=== PATIENT | male | born 1965 | race Caucasian/White ===

== ENCOUNTER 2025-02-16 06:30 | Day surgery (SDC) | payer OTHER, SELFPAY ==
[2025-02-16] VITALS (7 sets, daily range): BP systolic 125–145; BP diastolic 72–82; BMI 27.0
[2025-02-16] MEDS: TYLENOL 1000 MG PO (08:13)
--- NOTE | 2025-02-16 08:16 | W.SUR.PREOP ---
Pre-Operative Surgical Note
-
I have examined this patient prior to the performance of the scheduled procedure.
The patient's condition is unchanged from the time of the current History and
Physical and the patient is able to undergo the scheduled procedure.
--- NOTE | 2025-02-16 08:16 | HP.FOC2 ---
Focused History & Physical
Chief Complaint
HPI:
Chief Complaint: Right inguinal hernia, umbilical hernia
HPI / Indication for Planned Procedure: This is a 59-year-old male who presents with a symptomatic right inguinal hernia, found to have an umbilical hernia and a possible left inguinal hernia. Will plan for a robotic right inguinal hernia repair
with mesh, open umbilical hernia repair with possible mesh and possible left inguinal hernia repair with mesh.
Relevant Past Medical History: Stroke
Relevant Social History: Negative
Relevant Family History: Negative
Relevant Past Surgical History: Negative
Review of Systems
Review of Pertinent Systems: All Systems Negative
Medication
See Medication form for detailed medications: Yes
Medication List (including Herbals & OTC):
multivitamin with folic acid 400 mcg tablet (Tab-A-Jacquelyn) 1 tab PO DAILY 12/01/09
aspirin 81 mg tablet,delayed release 81 mg PO HS 02/14/25
cyanocobalamin (vitamin B-12) 1,000 mcg/mL injection solution 1,000 mcg IM DIRECTED 02/14/25
Medications Reviewed: Yes
Allergies and Reactions
Patient has Allergies: No
Noted Allergies and Reactions:
Allergy/AdvReac Type Severity Reaction Status Date / Time
No Known Allergies Allergy Verified 02/16/25 08:11
Pertinent Physical Exam
All Other Systems: Negative
Head/Neck: Normal
Diagnosis / Assessment
This is a 59-year-old male who presents with a symptomatic right inguinal hernia, found to have an umbilical hernia and a possible left inguinal hernia. Will plan for a robotic right inguinal hernia repair with mesh, open umbilical hernia repair
with possible mesh and possible left inguinal hernia repair with mesh.
Plan / Procedure
This is a 59-year-old male who presents with a symptomatic right inguinal hernia, found to have an umbilical hernia and a possible left inguinal hernia. Will plan for a robotic right inguinal hernia repair with mesh, open umbilical hernia repair
with possible mesh and possible left inguinal hernia repair with mesh.
Anesthesia/Sedation to be done by Anesthesia Provider: Yes
[2025-02-16] MEDS: NORMOSOL-R/PLASMALYTE-A 1000 IV (08:28)
--- NOTE | 2025-02-16 10:30 | W.IMMPOSTOP ---
Surgical Immed Post Op Note
-
Primary Surgeon: Colton Blandon MD
Assisting Surgeon: None
Pre-op Diagnosis: Right inguinal hernia, umbilical hernia
Post-op Diagnosis: Same
Procedure Performed:
1. Robotic right inguinal hernia repair with mesh
2. Excision of a right spermatic cord lesion (cord lipoma)
3. Open primary umbilical hernia repair
Anesthesia Type: General
Specimen / Cultures: Right cord lipoma
Estimated Blood Loss: 3 cc
Complications: None
Operative Findings: Medium sized indirect inguinal hernia, no femoral or direct component. Medium size cord lipoma reduced and resected. 1.5 cm umbilical hernia reduced and closed with 2 [id number] oh Surgilon sutures.
--- NOTE | 2025-02-16 10:31 | OR.RPT ---
Operative Report
Operative Report
Patient Name: Gary Hernandez
: 1965
Date of Operation: 02/16/2025
Preoperative Diagnosis: , right right inguinal hernia, umbilical hernia
Postoperative Diagnosis: Same
Procedure(s):
1. Robotic Inguinal Hernia Repair with mesh, (RASTA approach)
2. Excision of lesion of a spermatic cord lipoma ([id number])
3. Open primary umbilical hernia repair
Surgeon(s):
Dr. Blandon
Accounts Payable Or Receivable Clerk(s):
RUBEN Johnson
Anesthesia: General
Estimated Blood Loss: 3 cc
Urine Output: None
Drains/Lines/Implants: Large 3D Max Bard mid weight uncoated polypropylene mesh
Specimens: None
Indication for surgery: The patient has a history of groin pain and noted on exam to have a right inguinal and umbilical hernia(s). Following review of therapeutic options they have elected to undergo a minimally invasive repair.
Operative Findings: Medium sized indirect inguinal hernia, no femoral or direct component. Medium size cord lipoma reduced and resected. 1.5 cm umbilical hernia reduced and closed with 2 [id number] oh Surgilon sutures.
Details of the operation:
The patient was brought to the Operating Room and placed in the supine position with the arms tucked. IV antibiotics were infused and Venodyne stockings placed. Following uneventful induction of general endotracheal anesthesia, an orogastric tube
was placed. The abdomen was prepped and draped in the usual sterile fashion. The abdomen was entered using an infraumbilical cutdown. The hernia sac was isolated and reduced. The preperitoneal fat within the hernia sac was debulked using a 2-0
Vicryl suture ligation. The defect was used to pass an 8 mm trocar and pneumoperitoneum to 15 mmHg was obtained without difficulty. We then confirmed that no inadvertent injury was made while passing the trocar or Veress needle. We then placed two
additional 8 mm ports in the left upper and right upper quadrants. We then docked the robot with a Prograsper in the left hand port and monopolar scissors in the right. A right inguinal hernia was immediately obvious, there was no defect in the
left, there was some adhesions from the sigmoid colon over this area. We then began by creating a flap of the right side at the level of the ASIS laterally working our way medially to the medial umbilical fold. Staying onto the peritoneum we were
able to circumferentially dissect around the hernia sac and and peel it off of the underlying spermatic cord and testicular vessels, taking care to preserve them. Medially we identified the midline pubis as well as Dameon's ligament and ensured to
dissect 2 cm below the pubic rim over the bladder. After exposure of the entire myopectineal orifice we identified and reduced: A medium sized indirect inguinal hernia, no direct inguinal hernia, no femoral hernia, a medium cord lipoma, which was
removed
We then fixated a large 3D max mesh with a 2-0 Vicryl stitch at coopers medially and superior laterally. The flap was then closed with a running 2-0 barbed monocryl suture ensuring that the tail was cut flush with the medial fat pad so that no
barbs were exposed. During the closure of the flap an Angiocath was inserted and 20 cc of quarter percent Marcaine was instilled. The area in the flap cavity was then evacuated of air confirming that the mesh was flush and there were no folds. All
needles and instruments were then removed and the robot was undocked. The abdomen was then desufflated, and pneumoperitoneum evacuated. We then turned our attention to the umbilical hernia which was 1.5 cm so we elected to closed primarily with oh
Surgilon suture [id number] x 2. The umbilical stalk was tacked down and all skin sites were then closed with 4-0 Monocryl followed by Dermabond. Counts were correct and overall, the patient tolerated the procedure well and was taken to the
Recovery Room postoperatively in stable condition.
Orlin was the attending physician and performed the procedure with assistance of the PA above. The assistance of RUBEN Johnson was required due to the complexity of the procedure. During the procedure Renuka assisted with port placement, instrument
and needle exchanges, and closure of the wound. I was present for all portions of the case.
Colton Blandon MD
== END 2025-02-16 12:20 | disposition home or self-care (01) ==
LOC: SDS 06:30
PROVIDERS: ATTENDING PHYSICIAN Surgery
DX: K40.90 Unilateral inguinal hernia, without obstruction or gangrene, not specified as recurrent (principal); K42.9 Umbilical hernia without obstruction or gangrene
CPT/HCPCS: 49650; 49591; 88304; C1781